=== PATIENT | female | born 1985 | race Caucasian/White ===

== ENCOUNTER 2017-10-29 07:56 | Inpatient (IN) | payer SELFPAY ==
[~2017-10-29] VITALS: Ht 162.6 cm; Wt 85.8 kg
[2017-10-29] MEDS ORDERED: insulin (08:05)
[2017-10-29] MEDS ORDERED: SODIUM CHLORIDE 0.9% 1000ML BAG (SEPSIS BOLUS) IV ONE (08:15)
[2017-10-29 08:38] LABS: BG CARBOXYHEMOGLOBIN 0.5 % (0.5-1.5); BG DEOXYHEMOGLOBIN 1.6 % (0.0-5.0); BG METHEMOGLOBIN 0.4 % (0.0-1.5); BG OXYGEN SATURATION 98.4 % (92.0-98.5); BG OXYHEMOGLOBIN 97.5 % (94.0-97.0); BG PCO2 < 8.9 mmHg (35.0-45.0); BG PH 7.089 (7.350-7.450); BG PO2 140.5 mmHg (75.0-100.0); BG SAMPLE SITE RIGHT BRACHIAL; BG TOTAL HEMOGLOBIN 15.2 g/dL (12.0-18.0); BG VENT MODE ROOM AIR
[2017-10-29] MEDS ORDERED: INSULIN REGULAR (DRIP) 100 UNITS in SODIUM CHLORIDE 0.9% 100 ML IV ONE ×2 (08:45→09:30)
[2017-10-29] MEDS ORDERED: SODIUM CHLORIDE 0.9% 1,000 ML IV ONE (09:08)
[2017-10-29] MEDS ORDERED: SODIUM BICARBONATE 8.4% 1 MEQ/ML 50ML SYR IV ONE (09:15)
[2017-10-29 09:17] LABS: BASOPHILS % 0.1 % (0.0-2.0); CLARITY URINE CLOUDY (CLEAR); COLOR URINE YELLOW (YELLOW); HEMATOCRIT. 48.2 % (36.0-48.0); HEMOGLOBIN. 15.8 g/dL (12.0-16.0); KETONES URINE 4+ (NEGATIVE); LEUKOCYTE ESTERASE URINE NEGATIVE (NEGATIVE); LYMPHOCYTES % 9.9 % (20.0-50.0); MEAN CORPUSCULAR HEMOGLOBIN 30.2 pg (28.0-32.0); MEAN CORPUSCULAR VOLUME 92.2 fL (81.0-99.0); MEAN PLATELET VOLUME 10.4 fl (7.4-10.4); MONOCYTES % 2.1 % (2.0-8.0); NEUTROPHILS % 87.9 % (40.0-76.0); NITRITE URINE NEGATIVE (NEGATIVE); OCCULT BLOOD URINE 1+ (NEGATIVE); PLATELET 240 x1000/uL (130-400); PROTEIN URINE 1+ (NEGATIVE); RED BLOOD CELL COUNT 5.23 mill/uL (4.2-5.4); RED CELL DISTRIBUTION WIDTH 15.4 % (11.6-14.6); SPECIFIC GRAVITY URINE 1.029 (1.005-1.030); UROBILINOGEN URINE 0.2 E.U./dL (0.2-1.0)
[2017-10-29 09:25] LABS: CHLORIDE 100 mEq/L (98-107); HCG SCREEN NEGATIVE
[2017-10-29 09:27] LABS: INR 0.9; PROTHROMBIN TIME 9.5 sec (9.1-11.1)
[2017-10-29] MEDS ORDERED: POTASSIUM CHLORIDE 20MEQ TABLET SR PO ONE (09:30)
[2017-10-29 09:35] LABS: PHOSPHORUS 2.3 mg/dL (2.5-4.9)
[2017-10-29 09:37] LABS: CREATINE KINASE MB FRACTION 2.2 ng/mL (0.5-3.6)
[2017-10-29 09:39] LABS: CREATINE KINASE 47 IU/L (26-192)
[2017-10-29] MEDS ORDERED: INSULIN REGULAR (DRIP) 100 UNITS in SODIUM CHLORIDE 0.9% 100 ML IV SCH (09:45)
[2017-10-29] MEDS ORDERED: LORAZEPAM 2MG/ML CPJ IV PRN (09:45)
[2017-10-29] MEDS ORDERED: ACETAMINOPHEN 325MG TABLET PO PRN (09:45)
[2017-10-29] MEDS ORDERED: HYDROCODONE/ACETAMINOPHEN 5/325MG TABLET PO PRN (09:45)
[2017-10-29] MEDS ORDERED: IPRATROPIUM/ALBUTEROL 0.5-3(2.5)MG/3ML NEB INH PRN (09:45)
[2017-10-29] MEDS ORDERED: NA PHOS,M-B/NA PHOS,DI-BA ENEMA 118ML PR PRN (09:45)
[2017-10-29] MEDS ORDERED: ONDANSETRON HCL 4MG/2ML VIAL IV PRN (09:45)
[2017-10-29] MEDS ORDERED: MAGNESIUM/ALUMINUM HYDROXIDE/SIMETHICONE 30ML UDC PO PRN (09:45)
[2017-10-29] MEDS ORDERED: DOCUSATE SODIUM 100MG CAPSULE PO PRN (09:45)
[2017-10-29] MEDS ORDERED: GUAIFENESIN 200MG/10ML SUGAR FREE UDC PO PRN (09:45)
[2017-10-29] MEDS ORDERED: CLONIDINE 0.1MG TABLET PO PRN (09:45)
[2017-10-29] MEDS ORDERED: MORPHINE SULFATE 4 MG/ML CPJ (NOT FOR IM USE) IV PRN (09:45)
[2017-10-29] MEDS ORDERED: DIPHENHYDRAMINE 50MG/ML VIAL IV PRN (09:45)
[2017-10-29 09:49] LABS: *BARBITURATES SCREEN URINE NEGATIVE (NEGATIVE); *BENZODIAZEPINES SCREEN URINE NEGATIVE (NEGATIVE); *COCAINE SCREEN URINE NEGATIVE (NEGATIVE)
[2017-10-29 09:50] LABS: CANNABINOID URINE SCREEN NEGATIVE (NEGATIVE); METHADONE URINE SCREEN NEGATIVE (NEGATIVE); OPIATES URINE SCREEN NEGATIVE (NEGATIVE)
[2017-10-29 09:56] LABS: PHENCYCLIDINE URINE SCREEN NEGATIVE (NEGATIVE)
[2017-10-29] MEDS ORDERED: CEFTRIAXONE 1 G PREMIX 50 ML IV ONE (10:00)
[2017-10-29 10:01] LABS: *AMPHETAMINES SCREEN URINE PRESUMTIVE POSITIVE (NEGATIVE)
[2017-10-29 10:03] LABS: BETA HYDROXYBUTYRATE 12.4 mMol/L (0.0-0.3)
[2017-10-29] MEDS ORDERED: SODIUM BICARBONATE 8.4% 1 MEQ/ML 50ML SYR IV NR (11:20)
[2017-10-29 12:05] LABS: BG CARBOXYHEMOGLOBIN 0.4 % (0.5-1.5); BG DEOXYHEMOGLOBIN 1.1 % (0.0-5.0); BG METHEMOGLOBIN 0.2 % (0.0-1.5); BG OXYGEN SATURATION 98.9 % (92.0-98.5); BG OXYHEMOGLOBIN 98.3 % (94.0-97.0); BG PCO2 < 8.9 mmHg (35.0-45.0); BG PH 7.225 (7.350-7.450); BG PO2 149.8 mmHg (75.0-100.0); BG SAMPLE SITE RIGHT BRACHIAL; BG VENT MODE NASAL CANNULA
[2017-10-29] MEDS ORDERED: LEVOFLOXACIN 500MG PREMIX 100 ML IV NR (14:30)
[2017-10-29] MEDS: SODIUM CHLORIDE 0.45% 1,000 ML IV SCH (14:58)
[2017-10-29 16:47] LABS: CHLORIDE 113 mEq/L (98-107)
[2017-10-29 19:15] LABS: BASOPHILS % 0.3 % (0.0-2.0); CHLORIDE 112 mEq/L (98-107); HEMOGLOBIN. 13.9 g/dL (12.0-16.0); LYMPHOCYTES % 11.5 % (20.0-50.0); MEAN CORPUSCULAR HEMOGLOBIN 29.7 pg (28.0-32.0); MEAN CORPUSCULAR VOLUME 90.2 fL (81.0-99.0); MEAN PLATELET VOLUME 9.7 fl (7.4-10.4); MONOCYTES % 5.7 % (2.0-8.0); NEUTROPHILS % 82.5 % (40.0-76.0); PLATELET 205 x1000/uL (130-400); RED BLOOD CELL COUNT 4.66 mill/uL (4.2-5.4); RED CELL DISTRIBUTION WIDTH 15.1 % (11.6-14.6)
[2017-10-29 22:00] VITALS: BP 122/73
[2017-10-29] MEDS: ENOXAPARIN 40MG/0.4ML SYR SUBCUT SCH (22:36)
[2017-10-29] MEDS ORDERED: DEXTROSE 50% WATER 50ML SYRINGE IV PRN ×2 (23:15)
[2017-10-29] MEDS ORDERED: BLOOD SUGAR DIAGNOSTIC STRIP TEST SCH (23:15)
[2017-10-29 23:32] VITALS: BP 122/73
[2017-10-30] VITALS (46 sets, daily range): BP systolic 83–130; BP diastolic 49–75
[2017-10-30] MEDS ORDERED: INSULIN REGULAR (DRIP) 100 UNITS in SODIUM CHLORIDE 0.9% 100 ML IV SCH ×2
[2017-10-30] MEDS: SODIUM CHLORIDE 0.45% 1,000 ML IV SCH ×4 (00:38→20:19)
[2017-10-30] MEDS: METOCLOPRAMIDE HCL 10MG/2ML VIAL IV SCH ×5 (00:38→23:25)
[2017-10-30] MEDS: BLOOD SUGAR DIAGNOSTIC STRIP TEST SCH ×14 (00:38→20:20)
[2017-10-30 05:57] LABS: BASOPHILS % 0.3 % (0.0-2.0); EOSINOPHILS % 0.1 % (0.0-5.0); HEMATOCRIT. 39.8 % (36.0-48.0); HEMOGLOBIN. 13.4 g/dL (12.0-16.0); LYMPHOCYTES % 19.8 % (20.0-50.0); MEAN CORPUSCULAR HEMOGLOBIN 30.1 pg (28.0-32.0); MEAN CORPUSCULAR VOLUME 89.4 fL (81.0-99.0); MEAN PLATELET VOLUME 10.2 fl (7.4-10.4); NEUTROPHILS % 74.8 % (40.0-76.0); PLATELET 197 x1000/uL (130-400); RED BLOOD CELL COUNT 4.45 mill/uL (4.2-5.4); RED CELL DISTRIBUTION WIDTH 14.7 % (11.6-14.6)
[2017-10-30 06:15] LABS: CHLORIDE 111 mEq/L (98-107)
[2017-10-30 06:30] LABS: HDL CHOLESTEROL 47 mg/dL (40-59); LDL CHOLESTEROL 81 mg/dL (5-100); T4 FREE 0.75 ng/dL (0.76-1.46)
[2017-10-30] MEDS: INSULIN LISPRO 100 UNITS/ML SUBCUT SCH ×4 (07:00→20:20)
[2017-10-30] MEDS ORDERED: DEXTROSE 50% WATER 50ML SYRINGE IV PRN (07:00)
[2017-10-30] MEDS ORDERED: POTASSIUM CHLORIDE 20MEQ TABLET SR PO NR (07:00)
[2017-10-30] MEDS: PANTOPRAZOLE SODIUM 40 MG/VIAL IV SCH (08:16)
[2017-10-30] MEDS: INSULIN GLARGINE UD 100 UNITS/ML SYR SUBCUT SCH (11:03)
[2017-10-30] MEDS ORDERED: POTASSIUM CHLORIDE 20MEQ TABLET SR PO SCH (12:00)
[2017-10-30] MEDS ORDERED: LEVOFLOXACIN 500MG PREMIX 100 ML IV SCH ×2 (14:00)
[2017-10-30] MEDS: ENOXAPARIN 40MG/0.4ML SYR SUBCUT SCH (20:18)
[2017-10-31] VITALS (13 sets, daily range): BP systolic 92–112; BP diastolic 50–70
[2017-10-31] MEDS: METOCLOPRAMIDE HCL 10MG/2ML VIAL IV SCH ×2 (06:15→11:58)
[2017-10-31] MEDS: INSULIN LISPRO 100 UNITS/ML SUBCUT SCH ×2 (06:17→11:58)
[2017-10-31 06:18] LABS: BASOPHILS % 0.4 % (0.0-2.0); EOSINOPHILS % 0.5 % (0.0-5.0); HEMATOCRIT. 35.3 % (36.0-48.0); HEMOGLOBIN. 12.1 g/dL (12.0-16.0); LYMPHOCYTES % 35.3 % (20.0-50.0); MEAN CORPUSCULAR HEMOGLOBIN 30.2 pg (28.0-32.0); MEAN CORPUSCULAR VOLUME 88.5 fL (81.0-99.0); MEAN PLATELET VOLUME 10.2 fl (7.4-10.4); MONOCYTES % 5.5 % (2.0-8.0); NEUTROPHILS % 58.3 % (40.0-76.0); PLATELET 156 x1000/uL (130-400); RED CELL DISTRIBUTION WIDTH 15.2 % (11.6-14.6)
[2017-10-31] MEDS: BLOOD SUGAR DIAGNOSTIC STRIP TEST SCH ×2 (06:20→11:59)
[2017-10-31] MEDS: SODIUM CHLORIDE 0.45% 1,000 ML IV SCH (06:20)
[2017-10-31 06:39] LABS: CHLORIDE 108 mEq/L (98-107)
[2017-10-31] MEDS: PANTOPRAZOLE SODIUM 40 MG/VIAL IV SCH ×2 (09:00→10:28)
[2017-10-31] MEDS: INSULIN GLARGINE UD 100 UNITS/ML SYR SUBCUT SCH (10:30)
== END 2017-10-31 12:38 | disposition home or self-care (01) | DRG 420 ==
LOC: ER 07:56 → MICUSO 09:09 → EDBEDREQTM 09:14 → EDBEDREQ 09:14 → ENRESERV 20:56 → MICUSO 22:18 → 8WST 10-31 05:11
PROVIDERS: ADMIT Internal Medicine; ATTEND Internal Medicine
DX: E11.10 Type 2 diabetes mellitus with ketoacidosis without coma (principal); J96.00 Acute respiratory failure, unspecified whether with hypoxia or hypercapnia; K31.84 Gastroparesis; E11.43 Type 2 diabetes mellitus with diabetic autonomic (poly)neuropathy; F15.90 Other stimulant use, unspecified, uncomplicated; E86.0 Dehydration; M79.1 Myalgia; R63.1 Polydipsia; R35.8 Other polyuria; E87.6 Hypokalemia; F17.210 Nicotine dependence, cigarettes, uncomplicated; Z79.4 Long term (current) use of insulin; Z83.3 Family history of diabetes mellitus; Z91.14 Patient's other noncompliance with medication regimen
CPT/HCPCS: 36415; 36600; 71045; 80048; 80053; 80061; 80305; 81003; 82010; 82375; 82550; 82553; 82805; 82962; 83605; 83690; 83735; 83880; 84100; 84132; 84439; 84443; 84484; 84703; 85025; 85610; 87040; 87086; 93005; 96365; 96375; 99291; C9113; J0696; J1650; J1815; J1956; J2765; J3490; J7030; J7050

== ENCOUNTER 2018-04-12 00:11 | Emergency (ER) | payer OTHER, MEDICAID ==
[~2018-04-12] VITALS: Ht 167.6 cm; Wt 82.0 kg
[2018-04-12] MEDS ORDERED: HYDROCODONE/ACETAMINOPHEN 5/325MG TABLET PO ONE (01:00)
[2018-04-12] MEDS ORDERED: INSULIN LISPRO 100 UNITS/ML SUBCUT ONE (01:00)
[2018-04-12] MEDS ORDERED: INSULIN GLARGINE UD 100 UNITS/ML SYR SUBCUT ONE (01:00)
[2018-04-12 01:43] VITALS: BP 123/50
== END 2018-04-12 01:44 | disposition home or self-care (01) ==
LOC: ER 00:11
DX: E11.65 Type 2 diabetes mellitus with hyperglycemia (principal); Z79.4 Long term (current) use of insulin; K04.7 Periapical abscess without sinus; F17.200 Nicotine dependence, unspecified, uncomplicated
CPT/HCPCS: 81025; 82962; 96372; 99283; J1815; Z7610

== ENCOUNTER 2018-04-27 20:35 | Emergency (ER) | payer MEDICAID, OTHER ==
[~2018-04-27] VITALS: Ht 167.6 cm; Wt 77.0 kg
[2018-04-27 22:31] VITALS: BP 127/87
== END 2018-04-27 22:32 | disposition home or self-care (01) ==
LOC: ER 20:35
DX: E11.65 Type 2 diabetes mellitus with hyperglycemia (principal); F12.10 Cannabis abuse, uncomplicated; F17.200 Nicotine dependence, unspecified, uncomplicated
CPT/HCPCS: 82962; 99282; 99283

== ENCOUNTER 2020-06-27 11:56 | Inpatient (IN) | payer OTHER ==
[~2020-06-27] VITALS: Ht 157.5 cm; Wt 75.5 kg
[2020-06-27] VITALS (11 sets, daily range): BP systolic 87–110; BP diastolic 35–69
[2020-06-27] MEDS ORDERED: ONDANSETRON HCL 4MG/2ML INJ IV STA (12:10)
[2020-06-27] MEDS ORDERED: SODIUM CHLORIDE 0.9% 1,000 ML IV ONE ×3 (12:15→13:30)
[2020-06-27] MEDS ORDERED: MORPHINE SULFATE 4 MG/ML CPJ (NOT FOR IM USE) IV STA (12:38)
[2020-06-27] MEDS ORDERED: LORAZEPAM 2MG/ML CPJ IM STA (12:45)
[2020-06-27] MEDS ORDERED: HALOPERIDOL LACTATE 5MG/ML VIAL IM STA (12:45)
[2020-06-27] MEDS ORDERED: PIPERACILLIN/TAZ 3.375G PREMIX 50 ML IV ONE (12:45)
[2020-06-27] MEDS ORDERED: VANCOMYCIN 1 G PREMIX 200 ML IV ONE (12:45)
[2020-06-27 12:55] LABS: HEMATOCRIT. 41.8 % (36.0-48.0); HEMOGLOBIN. 11.3 g/dL (12.0-16.0); MEAN CORPUSCULAR HEMOGLOBIN 24.9 pg (28.0-32.0); MEAN CORPUSCULAR VOLUME 91.8 fL (81.0-99.0); MEAN PLATELET VOLUME 11.1 fl (7.4-10.4); PLATELET 387 x1000/uL (130-400); RED BLOOD CELL COUNT 4.55 mill/uL (4.2-5.4); RED CELL DISTRIBUTION WIDTH 19.1 % (11.6-14.6)
[2020-06-27 13:03] LABS: CHLORIDE 88 mEq/L (98-107)
[2020-06-27 13:05] LABS: PROTHROMBIN TIME 10.3 sec (9.6-11.0)
[2020-06-27 13:08] LABS: ETHANOL BLOOD < 10 mg/dL
[2020-06-27 13:15] LABS: HCG SCREEN NEGATIVE
[2020-06-27] MEDS ORDERED: INSULIN REGULAR (DRIP) 100 UNITS in SODIUM CHLORIDE 0.9% 99 ML IV ONE ×2 (13:30→17:45)
[2020-06-27 13:37] LABS: BETA HYDROXYBUTYRATE 15.6 mMol/L (0.0-0.3)
[2020-06-27 13:40] LABS: PLATELET ESTIMATE NORMAL
[2020-06-27 15:01] LABS: PHOSPHORUS 9.1 mg/dL (2.5-4.9)
[2020-06-27] MEDS ORDERED: ACETAMINOPHEN 325MG TABLET PO PRN (16:00)
[2020-06-27] MEDS ORDERED: MORPHINE SULFATE 2 MG/ML CPJ (NOT FOR IM USE) IV PRN (16:00)
[2020-06-27] MEDS ORDERED: IPRATROPIUM/ALBUTEROL 0.5-3(2.5)MG/3ML NEB HHN PRN (16:00)
[2020-06-27] MEDS ORDERED: ONDANSETRON HCL 4MG/2ML INJ IV PRN (16:00)
[2020-06-27] MEDS ORDERED: DIPHENHYDRAMINE 50MG/ML VIAL IV PRN (16:00)
[2020-06-27] MEDS ORDERED: CLONIDINE 0.1MG TABLET PO PRN (16:00)
[2020-06-27] MEDS ORDERED: PIPERACILLIN/TAZ 3.375G PREMIX 50 ML IV SCH (16:00)
[2020-06-27] MEDS ORDERED: DEXTROSE 50% WATER 50ML SYRINGE IV PRN ×2 (17:45)
[2020-06-27] MEDS ORDERED: LORAZEPAM 2MG/ML CPJ IV PRN (17:45)
[2020-06-27] MEDS ORDERED: INSULIN REGULAR (DRIP) 100 UNITS in SODIUM CHLORIDE 0.9% 100 ML IV SCH ×3 (17:45)
[2020-06-27 17:54] LABS: PHOSPHORUS 9.2 mg/dL (2.5-4.9)
[2020-06-27] MEDS ORDERED: IOHEXOL-300 100 ML BOTTLE ONE (18:13)
[2020-06-27] MEDS: SODIUM CHLORIDE 0.9% 1,000 ML IV SCH ×2 (18:59→20:03)
[2020-06-27] MEDS: BLOOD SUGAR DIAGNOSTIC STRIP TEST SCH ×5 (19:00→23:00)
[2020-06-27] MEDS ORDERED: PIPERACILLIN/TAZOBACTAM 2.25 G in DEXTROSE 5% WATER 50 ML IV SCH (20:00)
[2020-06-27] MEDS: PIPERACILLIN/TAZOBACTAM 2.25 G in DEXTROSE 5% WATER 50 ML IV SCH (20:02)
[2020-06-27] MEDS: INSULIN REGULAR (DRIP) 100 UNITS in SODIUM CHLORIDE 0.9% 100 ML IV SCH (20:30)
[2020-06-27 20:41] LABS: CHLORIDE 105 mEq/L (98-107)
[2020-06-27 20:47] LABS: PHOSPHORUS 4.9 mg/dL (2.5-4.9)
[2020-06-27] MEDS ORDERED: SODIUM CHL 0.9% + KCL 20MEQ/L 1,000 ML IV SCH (23:00)
[2020-06-28] VITALS (56 sets, daily range): BP systolic 77–150; BP diastolic 30–119
[2020-06-28 00:31] LABS: CHLORIDE 115 mEq/L (98-107)
[2020-06-28] MEDS: BLOOD SUGAR DIAGNOSTIC STRIP TEST SCH ×18 (00:46→17:11)
[2020-06-28] MEDS: DEXT 5%/0.9% NACL KCL 20MEQ/L 1,000 ML IV SCH ×4 (02:17→10:35)
[2020-06-28 02:59] LABS: CHLORIDE 120 mEq/L (98-107)
[2020-06-28] MEDS: PIPERACILLIN/TAZOBACTAM 2.25 G in DEXTROSE 5% WATER 50 ML IV SCH ×3 (04:40→19:53)
[2020-06-28 05:33] LABS: CHLORIDE 122 mEq/L (98-107)
[2020-06-28 05:35] LABS: HEMATOCRIT. 28.8 % (36.0-48.0); HEMOGLOBIN. 9.1 g/dL (12.0-16.0); MEAN CORPUSCULAR HEMOGLOBIN 24.3 pg (28.0-32.0); MEAN CORPUSCULAR VOLUME 76.8 fL (81.0-99.0); MEAN PLATELET VOLUME 9.4 fl (7.4-10.4); PLATELET 282 x1000/uL (130-400); RED BLOOD CELL COUNT 3.76 mill/uL (4.2-5.4); RED CELL DISTRIBUTION WIDTH 18.3 % (11.6-14.6)
[2020-06-28 05:40] LABS: LDL CHOLESTEROL 50 mg/dL (5-100)
[2020-06-28 05:41] LABS: HDL CHOLESTEROL 50 mg/dL (40-59)
[2020-06-28] MEDS ORDERED: VANCOMYCIN 750 MG PREMIX 150 ML IV SCH ×2 (07:00→08:00)
[2020-06-28 07:36] LABS: PLATELET ESTIMATE NORMAL
[2020-06-28] MEDS: INSULIN REGULAR (DRIP) 100 UNITS in SODIUM CHLORIDE 0.9% 100 ML IV SCH (08:54)
[2020-06-28 08:58] LABS: CHLORIDE 126 mEq/L (98-107)
[2020-06-28] MEDS: MIDODRINE HCL 5MG TABLET PO SCH ×3 (11:31→16:19)
[2020-06-28 12:55] LABS: CHLORIDE 128 mEq/L (98-107)
[2020-06-28] MEDS ORDERED: DEXT 5%/0.45% NACL KCL 40MEQ/L 1,000 ML IV SCH (15:30)
[2020-06-28] MEDS ORDERED: INSU100I24 SQ (15:57)
[2020-06-28] MEDS ORDERED: INSU100V34 SQ (15:57)
[2020-06-28 16:51] LABS: CHLORIDE 129 mEq/L (98-107)
[2020-06-28] MEDS ORDERED: DEXTROSE 50% WATER 50ML SYRINGE IV PRN ×3 (17:45)
[2020-06-28] MEDS ORDERED: BLOOD SUGAR DIAGNOSTIC STRIP TEST SCH ×4 (17:50→21:00)
[2020-06-28] MEDS ORDERED: INSULIN LISPRO 100 UNITS/ML SUBCUT SCH (18:00)
[2020-06-28] MEDS ORDERED: VANCOMYCIN 1 G PREMIX 200 ML IV SCH (18:00)
[2020-06-28] MEDS: DEXTROSE 5% WATER 1,000 ML IV SCH (18:14)
[2020-06-28 21:00] LABS: CHLORIDE 124 mEq/L (98-107)
[2020-06-28] MEDS ORDERED: INSULIN GLARGINE UD 100 UNITS/ML SYR SUBCUT SCH (22:00)
[2020-06-29] VITALS (42 sets, daily range): BP systolic 89–127; BP diastolic 35–83
[2020-06-29 00:53] LABS: CHLORIDE 120 mEq/L (98-107)
[2020-06-29] MEDS: DEXTROSE 5% WATER 1,000 ML IV SCH (04:28)
[2020-06-29] MEDS: PIPERACILLIN/TAZOBACTAM 2.25 G in DEXTROSE 5% WATER 50 ML IV SCH ×3 (04:28→20:41)
[2020-06-29 04:32] LABS: BASOPHILS % 1.2 % (0.0-2.0); EOSINOPHILS % 0.3 % (0.0-5.0); HEMATOCRIT. 34.3 % (36.0-48.0); HEMOGLOBIN. 10.7 g/dL (12.0-16.0); MEAN CORPUSCULAR HEMOGLOBIN 24.4 pg (28.0-32.0); MEAN CORPUSCULAR VOLUME 78.4 fL (81.0-99.0); MEAN PLATELET VOLUME 9.7 fl (7.4-10.4); MONOCYTES % 3.2 % (2.0-8.0); NEUTROPHILS % 83.3 % (40.0-76.0); PLATELET 246 x1000/uL (130-400); RED BLOOD CELL COUNT 4.37 mill/uL (4.2-5.4); RED CELL DISTRIBUTION WIDTH 19.3 % (11.6-14.6)
[2020-06-29 04:42] LABS: CHLORIDE 116 mEq/L (98-107)
[2020-06-29] MEDS ORDERED: INSULIN LISPRO 100 UNITS/ML SUBCUT SCH ×2 (06:45→08:00)
[2020-06-29] MEDS ORDERED: BLOOD SUGAR DIAGNOSTIC STRIP TEST SCH (08:00)
[2020-06-29] MEDS ORDERED: DEXTROSE 50% WATER 50ML SYRINGE IV PRN ×2 (08:30)
[2020-06-29] MEDS: SODIUM CHLORIDE 0.9% 1,000 ML IV SCH ×2 (08:40→14:10)
[2020-06-29 09:00] LABS: CHLORIDE 114 mEq/L (98-107)
[2020-06-29] MEDS: MIDODRINE HCL 5MG TABLET PO SCH ×3 (09:12→17:28)
[2020-06-29] MEDS: INSULIN REGULAR (DRIP) 100 UNITS in SODIUM CHLORIDE 0.9% 100 ML IV SCH ×2 (09:16→23:17)
[2020-06-29] MEDS: BLOOD SUGAR DIAGNOSTIC STRIP TEST SCH ×13 (09:31→23:00)
[2020-06-29] MEDS: VANCOMYCIN 1 G PREMIX 200 ML IV SCH ×2 (10:47→23:17)
[2020-06-29 12:21] LABS: CHLORIDE 118 mEq/L (98-107)
[2020-06-29] MEDS ORDERED: DEXTROSE 5% WATER 1,000 ML IV SCH (16:15)
[2020-06-29 16:55] LABS: CLARITY URINE CLOUDY (CLEAR); COLOR URINE YELLOW (YELLOW); KETONES URINE 1+ (NEGATIVE); LEUKOCYTE ESTERASE URINE 1+ (NEGATIVE); NITRITE URINE NEGATIVE (NEGATIVE); OCCULT BLOOD URINE TRACE (NEGATIVE); PH URINE 5.5 (4.5-8.0); PROTEIN URINE NEGATIVE (NEGATIVE); SPECIFIC GRAVITY URINE 1.026 (1.005-1.030); UROBILINOGEN URINE 0.2 E.U./dL (0.2-1.0)
[2020-06-29 17:19] LABS: CHLORIDE 118 mEq/L (98-107)
[2020-06-29] MEDS: DEXT 5% WATER + KCL 20MEQ/L 1,000 ML IV SCH (20:41)
[2020-06-29 21:02] LABS: CHLORIDE 116 mEq/L (98-107)
[2020-06-30] VITALS (48 sets, daily range): BP systolic 97–137; BP diastolic 53–94
[2020-06-30] MEDS: BLOOD SUGAR DIAGNOSTIC STRIP TEST SCH ×7 (01:00→21:20)
[2020-06-30] MEDS: PIPERACILLIN/TAZOBACTAM 2.25 G in DEXTROSE 5% WATER 50 ML IV SCH ×3 (03:09→21:25)
[2020-06-30 05:40] LABS: BASOPHILS % 0.5 % (0.0-2.0); EOSINOPHILS % 3.2 % (0.0-5.0); HEMATOCRIT. 29.9 % (36.0-48.0); HEMOGLOBIN. 9.7 g/dL (12.0-16.0); LYMPHOCYTES % 30.6 % (20.0-50.0); MEAN CORPUSCULAR HEMOGLOBIN 24.8 pg (28.0-32.0); MEAN CORPUSCULAR VOLUME 76.8 fL (81.0-99.0); MEAN PLATELET VOLUME 9.3 fl (7.4-10.4); MONOCYTES % 5.6 % (2.0-8.0); NEUTROPHILS % 60.1 % (40.0-76.0); PLATELET 258 x1000/uL (130-400); RED CELL DISTRIBUTION WIDTH 19.2 % (11.6-14.6)
[2020-06-30 05:42] LABS: CHLORIDE 114 mEq/L (98-107)
[2020-06-30] MEDS: DEXT 5% WATER + KCL 20MEQ/L 1,000 ML IV SCH (06:26)
[2020-06-30] MEDS ORDERED: POTASSIUM CHLORIDE 20MEQ TABLET SR PO SCH ×2 (06:30→08:00)
[2020-06-30] MEDS: MIDODRINE HCL 5MG TABLET PO SCH ×3 (08:38→17:38)
[2020-06-30] MEDS ORDERED: DEXTROSE 50% WATER 50ML SYRINGE IV PRN (10:30)
[2020-06-30] MEDS: VANCOMYCIN 1 G PREMIX 200 ML IV SCH ×2 (11:20→22:45)
[2020-06-30 13:19] LABS: CHLORIDE 114 mEq/L (98-107)
[2020-06-30] MEDS: INSULIN GLARGINE UD 100 UNITS/ML SYR SUBCUT SCH ×2 (13:53→21:28)
[2020-06-30] MEDS: INSULIN LISPRO 100 UNITS/ML SUBCUT SCH ×3 (14:00→21:27)
[2020-06-30] MEDS ORDERED: POTASSIUM CHLORIDE 20MEQ/PACKET PO NR (15:15)
[2020-06-30 20:10] LABS: CHLORIDE 112 mEq/L (98-107)
[2020-07-01] VITALS (33 sets, daily range): BP systolic 43–138; BP diastolic 19–90
[2020-07-01] MEDS: PIPERACILLIN/TAZOBACTAM 2.25 G in DEXTROSE 5% WATER 50 ML IV SCH ×2 (03:24→12:50)
[2020-07-01 05:24] LABS: BASOPHILS % 0.7 % (0.0-2.0); EOSINOPHILS % 6.1 % (0.0-5.0); HEMATOCRIT. 31.7 % (36.0-48.0); LYMPHOCYTES % 28.3 % (20.0-50.0); MEAN CORPUSCULAR HEMOGLOBIN 24.3 pg (28.0-32.0); MEAN CORPUSCULAR VOLUME 76.9 fL (81.0-99.0); MEAN PLATELET VOLUME 9.4 fl (7.4-10.4); MONOCYTES % 4.6 % (2.0-8.0); NEUTROPHILS % 60.3 % (40.0-76.0); PLATELET 231 x1000/uL (130-400); RED BLOOD CELL COUNT 4.12 mill/uL (4.2-5.4); RED CELL DISTRIBUTION WIDTH 19.2 % (11.6-14.6)
[2020-07-01 05:30] LABS: CHLORIDE 112 mEq/L (98-107)
[2020-07-01] MEDS: INSULIN LISPRO 100 UNITS/ML SUBCUT SCH ×2 (08:32→12:49)
[2020-07-01] MEDS: MIDODRINE HCL 5MG TABLET PO SCH ×2 (08:32→12:50)
[2020-07-01] MEDS: BLOOD SUGAR DIAGNOSTIC STRIP TEST SCH ×2 (08:32→12:50)
[2020-07-01] MEDS: INSULIN GLARGINE UD 100 UNITS/ML SYR SUBCUT SCH (10:14)
[2020-07-01] MEDS ORDERED: LANTUSUD SUBCUT (10:56)
[2020-07-01] MEDS ORDERED: MIDO5TAB4 PO (10:56)
[2020-07-01] MEDS: VANCOMYCIN 1 G PREMIX 200 ML IV SCH (12:12)
== END 2020-07-01 14:50 | disposition home health service (06) | DRG 469 ==
LOC: ER 11:56 → CVICU 14:50 → CANRESERV 15:18 → ENRESERV 15:18 → CVICU 18:11
PROVIDERS: ADMIT Internal Medicine; ATTEND Internal Medicine
DX: N17.0 Acute kidney failure with tubular necrosis (principal); E11.00 Type 2 diabetes mellitus with hyperosmolarity without nonketotic hyperglycemic-hyperosmolar coma (NKHHC); E86.0 Dehydration; E87.5 Hyperkalemia; K76.0 Fatty (change of) liver, not elsewhere classified; S91.301A Unspecified open wound, right foot, initial encounter; E87.1 Hypo-osmolality and hyponatremia; F17.200 Nicotine dependence, unspecified, uncomplicated; D64.9 Anemia, unspecified; R91.1 Solitary pulmonary nodule; Z78.1 Physical restraint status; Z89.432 Acquired absence of left foot; Z89.431 Acquired absence of right foot; Z79.4 Long term (current) use of insulin; S91.302A Unspecified open wound, left foot, initial encounter
CPT/HCPCS: 36415; 71045; 71260; 73620; 74177; 80048; 80053; 80061; 80202; 80320; 81003; 82010; 82962; 83036; 83605; 83735; 83880; 84100; 84134; 84145; 84443; 84484; 84703; 85025; 86850; 86900; 87106; 93005; 93970; 97161; 99291; J1630; J1815; J2060; J2270; J2405; J2543; J3370; J3480; J7030; J7042; J7050; J7060; J7070; Q9967; A4315; G0480